=== PATIENT | female | born 1980 | race Two or more races ===

== ENCOUNTER 2017-03-21 19:17 | Emergency (ER) | payer SELFPAY ==
[~2017-03-21] VITALS: Ht 165.1 cm; Wt 61.7 kg
[2017-03-21 19:39] VITALS: BP 114/65
[2017-03-21 19:42] LABS: BILIRUBIN,URINE NEGATIVE (NEG); GLUCOSE,URINE NEGATIVE (NEG); NITRITE,URINE NEGATIVE (NEG); PROTEIN,URINE NEGATIVE (NEG-TRACE); UROBILINOGEN,URINE 0.2 mg/dL (0.2 mg/dL)
[2017-03-21 19:48] LABS: BACTERIA,URINE FEW /HPF (0-FEW); RBC,URINE 0 /HPF (0-2); SQUAMOUS EPITHELIAL CELL,UR FEW /LPF
[2017-03-21] MEDS ORDERED: ONDANSETRON ODT 4 MG TAB.RAPDIS. PO ONE (20:15)
[2017-03-21 20:19] LABS: BASO # 0.1 x10^3/uL (0.0-0.2); BASO % 1 % (0-3); EOS % 10 % (0-3); HEMATOCRIT 36.3 % (36.0-47.0); HEMOGLOBIN 12.3 g/dL (12.0-15.5); LYMPH # 2.5 x10^3/uL (1.0-4.8); LYMPH % 23 % (24-48); MEAN CORPUSCULAR HEMOGLOBIN 29 pg (25-35); MEAN CORPUSCULAR HGB CONC 34 g/dL (31-37); MEAN CORPUSCULAR VOLUME 85 fL (79-100); MONO % 5 % (0-9); NEUT % 61 % (31-73); PLATELET COUNT 216 x10^3/uL (140-400); RED BLOOD COUNT 4.27 x10^6/uL (3.50-5.40); RED CELL DISTRIBUTION WIDTH 13.1 % (11.5-14.5); WHITE BLOOD COUNT 10.5 x10^3/uL (4.0-11.0)
[2017-03-21 20:41] LABS: CALCIUM 9.1 mg/dL (8.5-10.1); CREATININE 0.5 mg/dL (0.6-1.0); GFR 139.6; POTASSIUM 4.1 mmol/L (3.5-5.1)
[2017-03-21 20:51] LABS: ALBUMIN 3.3 g/dL (3.4-5.0); ALBUMIN/GLOBULIN RATIO 0.9 (1.0-1.7); TOTAL BILIRUBIN 0.2 mg/dL (0.2-1.0); TOTAL PROTEIN 6.8 g/dL (6.4-8.2)
--- NOTE | 2017-03-21 20:52 | PHYS DOC ---
Past Medical History Past Medical History: No Pertinent History Past Surgical History: Tonsillectomy Alcohol Use: None Drug Use: None Adult General Chief Complaint Chief Complaint: VAGINAL BLEEDING [facility] Patient is a 36 year old female with no significant medical history who presents today with vaginal spotting and lower abdominal cramping for 1-1/2 weeks. Patient is 8 weeks . She is a 6 para 5. Patient denies any fever. She states she has of nausea and vomiting. Denies any urgency frequency or dysuria. She follows up with a local clinic. Patient denies any concerns for STDs. She states the spotting only occurs when she wipes herself. Review of Systems Review of Systems Constitutional: Denies fever or chills [] Eyes: Denies change in visual acuity, redness, or eye pain [] HENT: Denies nasal congestion or sore throat [] Respiratory: Denies cough or shortness of breath [] Cardiovascular: No additional information not addressed in [facility] [] GI: Lower abdominal crampy, vaginal spotting, nausea and vomiting. : Denies dysuria or hematuria [] Musculoskeletal: Denies back pain or joint pain [] Integument: Denies rash or skin lesions [] Neurologic: Denies headache, focal weakness or sensory changes [] All other systems were reviewed and found to be within normal limits, except as documented in this note. Current Medications Current Medications Current Medications Medications (Trade) Dose Ordered Sig/[facility] Start Time Stop Time Status Last Admin Dose Admin Ondansetron HCl (Zofran Odt) 4 mg 1X ONCE 03/21/17 20:15 03/21/17 20:16 DC 03/21/17 20:10 4 MG Allergies Allergies Allergies Coded Allergies Type Severity Reaction Last Updated Verified No Known Drug Allergies 03/21/17 No Physical Exam Physical Exam Constitutional: Well developed, well nourished, no acute distress, non-toxic appearance. [] HENT: Normocephalic, atraumatic, bilateral external ears normal, oropharynx moist, no oral exudates, nose normal. [] Eyes: PERRLA, EOMI, conjunctiva normal, no discharge. [] Neck: Normal range of motion, no tenderness, supple, no stridor. [] Cardiovascular:Heart rate regular rhythm, no murmur [] Lungs & Thorax: Bilateral breath sounds clear to auscultation [] Abdomen: Bowel sounds normal, soft, no tenderness, no masses, no pulsatile masses. [] Pelvic exam External pelvic appears normal. Cervix is closed no CMT. No adnexal tenderness. Small amount of brown discharge in the vaginal vault consistent with spotting. Skin: Warm, dry, no erythema, no rash. [] Back: No tenderness, no CVA tenderness. [] Extremities: No tenderness, no cyanosis, no clubbing, ROM intact, no edema. [] Neurologic: Alert and oriented X 3, normal motor function, normal sensory function, no focal deficits noted. [] Psychologic: Affect normal, judgement normal, mood normal. [] Current Patient Data Vital Signs Vital Signs Date Time Temp Pulse Resp B/P (MAP) Pulse Ox O2 Delivery O2 Flow Rate FiO2 03/21/17 19:39 97.9 78 16 114/65 (81) 99 Room Air 97.9 Lab Values Laboratory Tests Test 03/21/17 19:30 03/21/17 19:37 03/21/17 20:16 Urine Collection Type Unknown Urine Color Yellow Urine Clarity Clear Urine pH 6.0 Urine Specific [place] <=1.005 Urine Protein Negative mg/dL (NEG-TRACE) Urine Glucose (UA) Negative mg/dL (NEG) Urine Ketones (Stick) Negative mg/dL (NEG) Urine Blood Negative (NEG) Urine Nitrite Negative (NEG) Urine Bilirubin Negative (NEG) Urine Urobilinogen Dipstick 0.2 mg/dL (0.2 mg/dL) Urine Leukocyte Esterase Negative (NEG) Urine RBC 0 /HPF (0-2) Urine WBC 1-4 /HPF (0-4) Urine Squamous Epithelial Cells Few /LPF Urine Bacteria Few /HPF (0-FEW) Urine Mucus Slight /LPF POC Urine HCG, Qualitative Hcg positive (Negative) White Blood Count 10.5 x10^3/uL (4.0-11.0) Red Blood Count 4.27 x10^6/uL (3.50-5.40) Hemoglobin 12.3 g/dL (12.0-15.5) Hematocrit 36.3 % (36.0-47.0) Mean Corpuscular Volume 85 fL (79-100) Mean Corpuscular Hemoglobin 29 pg (25-35) Mean Corpuscular Hemoglobin Concent 34 g/dL (31-37) Red Cell Distribution Width 13.1 % (11.5-14.5) Platelet Count 216 x10^3/uL (140-400) Neutrophils (%) (Auto) 61 % (31-73) Lymphocytes (%) (Auto) 23 % (24-48) L Monocytes (%) (Auto) 5 % (0-9) Eosinophils (%) (Auto) 10 % (0-3) H Basophils (%) (Auto) 1 % (0-3) Neutrophils # (Auto) 6.5 x10^3uL (1.8-7.7) Lymphocytes # (Auto) 2.5 x10^3/uL (1.0-4.8) Monocytes # (Auto) 0.5 x10^3/uL (0.0-1.1) Eosinophils # (Auto) 1.0 x10^3/uL (0.0-0.7) H Basophils # (Auto) 0.1 x10^3/uL (0.0-0.2) Maternal Serum HCG Beta Subunit 530947 mIU/mL (0-5) H Sodium Level 137 mmol/L (136-145) Potassium Level 4.1 mmol/L (3.5-5.1) Chloride Level 103 mmol/L (98-107) Carbon Dioxide Level 26 mmol/L (21-32) Anion Gap 8 (6-14) Blood Urea Nitrogen 10 mg/dL (7-20) Creatinine 0.5 mg/dL (0.6-1.0) L Estimated GFR (Cockcroft-Gault) 139.6 BUN/Creatinine Ratio 20 (6-20) Glucose Level 103 mg/dL (70-99) H Calcium Level 9.1 mg/dL (8.5-10.1) Total Bilirubin 0.2 mg/dL (0.2-1.0) Aspartate Amino Transferase (AST) 12 U/L (15-37) L Alanine Aminotransferase (ALT) 16 U/L (14-59) Alkaline Phosphatase 93 U/L (46-116) Total Protein 6.8 g/dL (6.4-8.2) Albumin 3.3 g/dL (3.4-5.0) L Albumin/Globulin Ratio 0.9 (1.0-1.7) L Lipase 131 U/L (73-393) Laboratory Tests 03/21/17 20:16 Laboratory Tests 03/21/17 20:16 Microbiology 03/21/17 Wet Prep - Final, Complete EKG EKG [] Radiology/Procedures Radiology/Procedures []PROCEDURE: OB < 14 WKS OB ultrasound dated 03/21/2017. No comparison available. Clinical indication: Intermittent spotting for 2 weeks. Mid pelvic pain. FINDINGS: Gestational sac and pole within the endometrial canal. The crown-rump length measures 1.5 cm, correlating with a 7 week 6 day gestation with estimated sonographic date of delivery of 11/01/2017. Yolk sac is visualized. No subchorionic collection. heart rate 145 bpm. Right ovary measures 3.0 x 1.5 x 2.0 cm. Left ovary measures 3.3 x 2.3 x 2.0 cm. Small cyst at the left ovary measuring 2.0 cm, likely corpus luteum. No free fluid. IMPRESSION: Single viable intrauterine gestation with estimated sonographic gestational age of 7 weeks 6 days. No acute findings. Electronically signed by: Lynne Breen MD (03/21/2017 8:53 PM) [facility] DICTATED and SIGNED BY: LYNNE BREEN MD DATE: 03/21/172049 CC: CAITLYN DILL LIFE EDUCATOR; NO PCP; NON,STAFF ~ Course & Med Decision Making Course & Med Decision Making Pertinent Labs and Imaging studies reviewed. (See chart for details) This is a currently 8 wks presenting with nausea, vomiting, abd cramping and spotting for one and half weeks. Positive urine hCG, beta-hCG 154, 985 urine analysis is negative for infection. Wet prep positive for BV, discharged Flagyl. She had small amount of spotting on pelvic exam. OB ultrasound is positive for IUP with a heart rate of 145. Patient was discharged with instructions to maintain bedrest. Instructed to follow-up with her local clinic doctor in the next 1-3 days. Provided proper return precautions including the need to return to the ED if she starts soaking more than 1 feminine pad an hour I'll has uncontrolled pain. Tylenol recommended for pain. Dragon Disclaimer Dragon Disclaimer This electronic medical record was generated, in whole or in part, using a voice recognition dictation system. Departure Departure Impression: Primary Impression: Vaginal bleeding in Additional Impression: Bacterial vaginosis Disposition: 01 HOME, SELF-CARE Condition: STABLE Referrals: NO PCP (PCP) KRYSTAL JOAQUIN DO Follow-up with your clinic doctor in the next 1-3 days Patient Instructions: Bacterial Vaginosis, [id number], Vaginal Bleeding During , [id number] Additional Instructions: You were seen with vaginal spotting as well as nausea and vomiting in . Your ultrasound shows you're 7 weeks . You also have bacterial vaginosis. We put you on antibiotics for this. Follow-up with your clinic [facility] in the next 1-3 days. Please return to the emergency room at any point your symptoms worsen or you start soaking more than 1 feminine pad an hour. Scripts Metronidazole (FLAGYL) 500 Mg Tablet 1 TAB PO BID, #14 TAB Prov: CAITLYN DILL APRN 03/21/17 Problem Qualifiers CAITLYN DILL APRN Mar 21, 2017 20:52
--- NOTE | 2017-03-21 20:56 | RAD ---
OB ultrasound dated 03/21/2017. No comparison available. Clinical indication: Intermittent spotting for 2 weeks. Mid pelvic pain. FINDINGS: Gestational sac and pole within the endometrial canal. The crown-rump length measures 1.5 cm, correlating with a 7 week 6 day gestation with estimated sonographic date of delivery of 11/01/2017. Yolk sac is visualized. No subchorionic collection. heart rate 145 bpm. Right ovary measures 3.0 x 1.5 x 2.0 cm. Left ovary measures 3.3 x 2.3 x 2.0 cm. Small cyst at the left ovary measuring 2.0 cm, likely corpus luteum. No free fluid. IMPRESSION: Single viable intrauterine gestation with estimated sonographic gestational age of 7 weeks 6 days. No acute findings. Electronically signed by: Jacob Breen MD (03/21/2017 8:53 PM) [facility]
[2017-03-21] MEDS ORDERED: METR500T PO (22:03)
== END 2017-03-21 22:32 | disposition home or self-care (01) ==
LOC: ER 19:17
DX: O46.91 Antepartum hemorrhage, unspecified, first trimester (principal); O23.591 Infection of other part of genital tract in pregnancy, first trimester; B96.89 Other specified bacterial agents as the cause of diseases classified elsewhere; O21.9 Vomiting of pregnancy, unspecified; Z3A.01 Less than 8 weeks gestation of pregnancy
CPT/HCPCS: 36415; 76801; 80053; 81001; 81025; 83690; 84702; 85025; 87491; 87591; 99285; Q0111; Q0162